=== PATIENT | female | born 1985 | race Caucasian/White ===

== ENCOUNTER 2019-01-24 18:20 | Inpatient (IN) ==
--- NOTE | 2019-01-24 19:09 | PROVIDER DOCUMENTATION ---
HPI-Screening - General Chief Complaint: General Adult Stated Complaint: POSS LOW BLOOD COUNT Time Seen by Provider: 01/24/19 18:59 Source: patient Allergies/Adverse Reactions: Allergies Allergy/AdvReac Type Severity Reaction Status Date / Time garlic Allergy Intermediate THROAT Verified 01/14/19 02:33 ITCHING Home Medications: Home Medication List Medication Instructions Recorded Confirmed Last Taken Type Albuterol Sulfate [Albuterol 6.7 gm INHALATION TID PRN #1 01/14/19 Unknown Rx Sulfate Hfa] hfa.aer.ad Benzonatate [Tessalon Perle] 100 mg PO TID PRN #20 cap 01/14/19 Unknown Rx Iron 65 mg PO QAM 01/14/19 01/14/19 01/13/19 History Patient arrived via EMS?: No HPI: Patient is a 33yo F who presents with complaints of "possible low blood count." Reports long hx of anemia requiring transfusions. States she saw her PCP this afternoon who referred her to the ED. Patient reports she feels weak, SOB, has CP, and is experiencing heart palpitations. Reports she has been on her menstrual cycle for 2 months. Upon examination, patient appears pale and is tachycardic. Physical Exam-Screening - PHYSICAL EXAM-ADULT Initial Vital Signs Reviewed: Yes - CONSTITUTIONAL General Appearance: alert, no apparent distress, other (pale). negative: lethargic, slow to respond, obtunded - EYES Eyes: PERRL/EOMI - HEAD, EARS, NOSE, MOUTH & THROAT HENMT: normocephalic/atraumatic, moist mucous membranes. negative: angioedema - NECK Neck: full range of motion, supple, normal inspection - RESPIRATORY Respiratory: chest non-tender, lungs clear, normal breath sounds, no pleuratic chest pain, no respiratory distress, no accessory muscle use. negative: crackles, rales, rhonchi, stridor, wheezing, retractions, splinting - CARDIOVASCULAR Cardiovascular: no gallop, tachycardia (127) - MUSCULOSKELETAL Back Exam: normal inspection Extremity: normal range of motion, non-tender - SKIN Integumentary: warm/dry, pallor. negative: cyanosis, mottled - NEUROLOGIC Neurologic: grossly normal. negative: aphasia, EOM palsy - PSYCHIATRIC Psych/Mental Status: normal mood/affect, normal thought content, normal thought process, oriented x 3 Screening Depart - Departure ED Screening Disposition: Continued in ED for Treatment Referrals and Follow-Ups: Kaity Thomas CRNP [Primary Care Provider] - Attestation - Physician/ NIDHI Attestation Patient care was provided by Advanced Practice Provider:: Yes Advanced Practice Provider:: Karmen Hallman Advanced Practice Provider documentation review:: The Mid-level provider documentation, treatment plan and medical decision making was reviewed by the physician who agrees with all treatment and medical decision making by the MLP. The physician spent face to face time with patient:: No Advanced Practice Provider documentation review:: Supervising physician onsite and consulted in the evaluation and care of this patient. The physician did not have a face to face encounter with the patient.
[2019-01-24 19:34] LABS: BASO# 0.02 X1000 (0.0-0.2); BASO% 0.3 % (0.0-0.8); EOS# 0.06 X1000 (0.0-0.7); HEMATOCRIT 24.1 % (37.0-47.0); HEMOGLOBIN 6.7 g/dL (12.0-16.0); IMM GRAN# 0.04 X1000 (0.0-0.04); IMM GRAN% 0.6 % (0.0-0.5); LYMPH% 31.8 % (20.5-51.1); MCH 22.7 PG (27-31); MCHC 27.8 g/dL (33-37); MCV 81.7 FL (81-99); MONO# 0.32 X1000 (0.11-0.59); MONO% 5.1 % (1.7-9.3); MPV 10.2 FL (7.4-10.4); NEUT# 3.84 X1000 (1.4-6.5); NEUT% 61.2 % (42.2-75.2); PLT 169 X1000 (130-400); RBC 2.95 XMIL (4.2-5.4); RDW 19.6 % (11.5-14.5); WBC 6.28 X1000 (4.8-10.8)
[2019-01-24 19:39] LABS: INR 0.98; PROTIME 13.1 Seconds (11.0-16.0); PTT 24.5 Seconds (22.3-41.8)
[2019-01-24] MEDS ORDERED: NS 500 ML IV ONE (19:54)
--- NOTE | 2019-01-24 19:58 | PROVIDER DOCUMENTATION ---
HPI-General Adult - General Chief Complaint: General Adult Stated Complaint: POSS LOW BLOOD COUNT Time Seen by Provider: 01/24/19 18:59 Source: patient Allergies/Adverse Reactions: Patient Allergies Allergy/AdvReac Type Severity Reaction Status Date / Time garlic Allergy Intermediate THROAT Verified 01/24/19 23:22 ITCHING Home Medications: Home Medication List Medication Instructions Recorded Confirmed Last Taken Type Norgestimate/Ethinyl Estradiol 1 ea PO QAM 01/24/19 01/24/19 01/24/19 09:00 History [Sprintec 28's] - History of Present Illness -Gen Adult Nature of Presenting Problems: Patient is a 33yo F who presents with complaints of "possible low blood count." Reports long hx of anemia requiring transfusions. States she saw her PCP this afternoon who referred her to the ED. Patient reports she feels weak/dizzy, SOB, has R sided CP, and is experiencing heart palpitations. Reports she has been on her menstrual cycle for 2 months, which is not uncommon for her. States she is saturating approximately 8 pads a day. Reports her OB[facility]CHIEF DISPATCHER SERVICE started her on Sprintec OCP last month in an attempt to control the bleeding. States also reports she has a machine lacer appointment next month. Upon examination, patient appears pale and is tachycardic. Location of Pain/Injury: reports: generalized Pain Radiation: reports: no radiation Quality of Pain: reports: aching Severity: reports: moderate Modifying Factors: improves with: nothing Associated Symptoms: reports: chest pain (R sided), dizziness, fatigue, shor tness of breath, weakness. denies: back/neck pain, nausea, vomiting Similar Symptoms Previously?: Yes Recently seen or treated by another doctor?: No Review of Systems - Adult - REVIEW OF SYSTEMS - ADULT Constitutional: reports: no symptoms reported. denies: chills, fever Eyes: reports: no symptoms reported Ears, Nose, Mouth & Throat: reports: no symptoms reported Cardiovascular: reports: see HPI, chest pain (R), palpitations Respiratory: reports: see HPI, shortness of breath. denies: cough, wheezing Gastrointestinal: reports: no symptoms reported. denies: abdominal pain, vomiting Genitourinary: reports: see HPI, discharge (heavy vaginal bleeding) Musculoskeletal: reports: see HPI, muscle weakness Integumentary: reports: see HPI, other (pallor) Neurological: reports: see HPI, dizziness/vertigo Psychiatric: reports: no symptoms reported Endocrine: reports: no symptoms reported Hematologic/Lymphatic: reports: see HPI, low blood count Allergic/Immunologic: reports: no symptoms reported Past History - Adult - PAST MEDICAL HISTORY-ADULT Review of Records: reports: Old Records Reviewed, Nursing Assessment Review, Medications Reviewed, Social history reviewed & non-contributory. Major Childhood Illnesses: reports: denies history Cardiovascular: reports: HTN Respiratory: reports: asthma Gastrointestinal: reports: denies history Obstetrical/Gynecological: reports: ovarian cysts, other (ammenorrhea) Genitourinary: reports: denies history Musculoskeletal: reports: chronic pain (chest wall pain) Neurological: reports: headaches/migraines Psychiatric: reports: anxiety Endocrine/Immune: reports: anemia Other Conditions: reports: denies history - PRIOR SURGERIES/PROCEDURES Surgical/Procedure History: reports: none - IMMUNIZATION STATUS Childhood Immunizations: See Nurse Assessment Flu Vaccine: See Nurse Assessment - FAMILY HISTORY Family History: diabetes (mother), CAD over 55 yo (grandfather), CVA/TIA (aunt and uncle had strokes in their 30s) - SOCIAL HISTORY Smoking: non-smoker Physical Exam-General - PHYSICAL EXAM-ADULT Initial Vital Signs Reviewed: Yes - CONSTITUTIONAL General Appearance: alert, mild distress. negative: lethargic, slow to respond, obtunded - EYES Eyes: PERRL/EOMI. negative: EOM palsy - HEAD, EARS, NOSE, MOUTH & THROAT HENMT: normocephalic/atraumatic, moist mucous membranes. negative: angioedema - NECK Neck: full range of motion, supple, normal inspection - RESPIRATORY Respiratory: chest non-tender, lungs clear, normal breath sounds, no pleuratic chest pain, no respiratory distress, no accessory muscle use. negative: crackles, rales, rhonchi, stridor, wheezing - CARDIOVASCULAR Cardiovascular: no gallop, tachycardia (127) - GASTROINTESTINAL (ABDOMEN) Abdominal Exam: normal bowel sounds, non tender, soft - GENITOURINARY Female Genitalia/Pelvic Exam: external exam normal, no cerv. motion tender, blood - MUSCULOSKELETAL Back Exam: normal inspection, no CVA tenderness Extremity: normal range of motion, non-tender, normal gait, normal inspection, pelvis stable - SKIN Integumentary: warm/dry, pallor. negative: cyanosis, jaundice, mottled - NEUROLOGIC Neurologic: grossly normal. negative: abnormal gait, aphasia, EOM palsy - PSYCHIATRIC Psych/Mental Status: normal mood/affect, normal thought content, normal thought process, oriented x 3 Progress - PLAN OF CARE/RESULTS Progress/Plan/Lab Results: Vital Signs - 8 hr 01/24/19 19:02 Temperature 99.2 F Pulse Rate 127 H Respiratory Rate 18 Blood Pressure 130/79 O2 Sat by Pulse Oximetry 100 Laboratory Results - last 24 hr 01/24/19 01/24/19 19:13 19:13 WBC 6.28 RBC 2.95 L Hgb 6.7 L Hct 24.1 L MCV 81.7 MCH 22.7 L MCHC 27.8 L RDW Std Deviation 19.6 H Plt Count 169 MPV 10.2 Immature Gran % (Auto) 0.6 H Neut % (Auto) 61.2 Lymph % (Auto) 31.8 [place] % (Auto) 5.1 Eos % (Auto) 1.0 Baso % (Auto) 0.3 Immature Gran # (Auto) 0.04 Neut # (Auto) 3.84 Lymph # (Auto) 2.00 [place] # (Auto) 0.32 Eos # (Auto) 0.06 Baso # (Auto) 0.02 PT 13.1 INR 0.98 PTT (Actin FS) 24.5 Orders Category Date Time Status ED: Urine Bedside ORDERED Care 01/24/19 19:03 Active Nursing- Obtain EKG ONCE Care 01/24/19 19:04 Active Saline Loc NOW Care 01/24/19 19:03 Active Transfuse .Give-Transfuse Care 01/24/19 19:54 Active CHEST-2 VIEWS [RAD] Stat Exams 01/24/19 19:07 Ordered CBC WITH ELECTRONIC DIFF [HEME] Stat Lab 01/24/19 19:13 Completed CK PROFILE [SP CHEM] Stat Lab 01/24/19 19:13 Received COMPREHENSIVE METABOLIC PANEL [CHEM] Stat Lab 01/24/19 19:13 Received LRPC (RED CELLS) [BBK] Stat Lab 01/24/19 19:54 Uncollected PROTIME WITH INR [COAG] Stat Lab 01/24/19 19:13 Completed PTT [COAG] Stat Lab 01/24/19 19:13 Completed TROPONIN T Stat Lab 01/24/19 19:13 Received TYPE & SCREEN [BBK] Stat Lab 01/24/19 19:13 Received URINALYSIS W/POSS RFLX CULT [URINALYSIS] Stat Lab 01/24/19 19:03 Uncollected 0.9% Sodium Chloride Inj [Ns] 500 ml Med 01/24/19 19:54 Discontinued IV As Directed mls/hr EKG [EKG] Stat Ther 01/24/19 19:03 Ordered Lab results, imaging results, and need for admission/blood products discussed with patient who agrees with and verbalizes understanding. Result Diagrams: 01/24/19 19:13 01/24/19 19:13 - CONSULTS/PCP/HOSPITALIST Notification #1 *Consult/PCP/Hospitalist*: Dr. Gonsalves, Hospitalist Time Discussed: 20:15 Reason/Comments: Symptomatic anemia; abnormal uterine bleeding Consult Disposition: Admit #2 Consult: [facility] Time Discussed: 20:52 Reason/Comments: Abnormal uterine bleeding; anemia Consult Disposition: Will see in ED, other (Consult while admitted) Departure - Departure Date of Disposition Decision: 01/24/19 Time of Disposition Decision: 21:15 DIAGNOSIS: Symptomatic anemia, Abnormal uterine bleeding, Palpitations Chest pain Qualifiers: Chest pain type: unspecified Qualified Code(s): R07.9 - Chest pain, unspecified Disposition: ADMITTED INPATIENT 09 Certified Medical Emergency: Emergent Condition: Stable - Critical Care Note This patient required my direct & personal management of CC.: Yes Total Time (mins): 40 Critical Care Statement: This patient required my direct personal management to treat or rule out processes, the absence of which, could potentiallly result in sudden, clinically significant life or limb threatening deterioration. Attestation - Physician/ NIDHI Attestation Patient care was provided by Advanced Practice Provider:: Yes Advanced Practice Provider:: Karmen Hallman Advanced Practice Provider documentation review:: The Mid-level provider documentation, treatment plan and medical decision making was reviewed by the physician who agrees with all treatment and medical decision making by the MLP. The physician spent face to face time with patient:: No Advanced Practice Provider documentation review:: Supervising physician onsite and consulted in the evaluation and care of this patient. The physician did not have a face to face encounter with the patient.
[2019-01-24 20:02] LABS: AGAP 15; ALB/GLOB RATIO 1.9; ALBUMIN 4.1 g/dL (3.5-5.0); ALKALINE PHOSPHATASE 51 U/L (32-104); BUN 12 mg/dL (8-22); CALCIUM 9.3 mg/dL (8.8-10.2); CHLORIDE 102 mmol/L (98-107); CK PROFILE 164 U/L (24-173); COSMO 283; ESTIMATED GFR > 60; GLUCOSE 194 mg/dL (70-104); GOT 17 U/L (10-30); GPT 10 U/L (10-36); POTASSIUM 3.6 mmol/L (3.5-5.1); SODIUM 139 mmol/L (136-145); TCO2 22 mmol/L (25-35); TOTAL BILIRUBIN 0.37 mg/dL (0.20-1.00); TOTAL PROTEIN 6.3 g/dL (6.3-8.3)
--- NOTE | 2019-01-24 21:35 | Diag Imaging Result Doc PS360 ---
EXAM: CHEST-2 VIEWS 01/24/2019 HISTORY: CP; SOB TECHNIQUE: PA and lateral chest COMMENT: There is no evidence of acute cardiac or pulmonary disease. There is a prominent epicardial fat pad over the left heart border. There has been no significant change since 01/14/2019. IMPRESSION: Stable chest. Electronically signed by Brad Combs 01/24/2019 9:33 PM
[2019-01-24 22:16] LABS: URINE SOURCE CLEAN CATCH
--- NOTE | 2019-01-24 22:33 | ED EKG INTERP ---
This chart was entered by Naomi Sinclair Scribe, acting as scribe for Sedrick Escobar MD. EKG Interpretation - EKG Time of EKG reading by physician:: 19:13 EKG Read and Signed by:: Sedrick Escobar EKG Interpretation (*Must complete 3 of following elements*): Normal Rate: 110 Rhythm: sinus tach [place]: normal QRS: normal IN Interval: normal ST Wave: normal Attestation - Physician/ NIDHI Attestation Patient care was provided by Advanced Practice Provider:: Yes Advanced Practice Provider:: Karmen Hallman Advanced Practice Provider documentation review:: The Mid-level provider documentation, treatment plan and medical decision making was reviewed by the physician who agrees with all treatment and medical decision making by the MLP. The physician spent face to face time with patient:: No Advanced Practice Provider documentation review:: Supervising physician onsite and consulted in the evaluation and care of this patient. The physician did not have a face to face encounter with the patient. This chart was documented by the indicated scribe, (Naomi Sinclair Scribe) and accurately reflects the services I performed and decisions made by me, Sedrick Escobar MD, as attested by the provider's signature.
[2019-01-24] MEDS ORDERED: TYLENOL PO ONE (23:11)
[2019-01-24 23:18] LABS: UR EPITHELIAL CELLS <10 /HPF (<10); URINE BACTERIA NEGATIVE /HPF; URINE RBC TNTC /HPF (<10); URINE WBC <10 /HPF (<10)
[2019-01-24] MEDS ORDERED: TYLENOL ONE (23:18)
[2019-01-24 23:27] LABS: BILIRUBIN URINE NEGATIVE (NEGATIVE); BLOOD URINE LARGE (NEGATIVE); COLOR YELLOW; GLUCOSE URINE 100 mg/dL (NEGATIVE); KETONE URINE NEGATIVE (NEGATIVE); LEUKOCYTES URINE NEGATIVE (NEGATIVE); NITRITE URINE NEGATIVE (NEGATIVE); PH URINE 5.5; PROTEIN URINE TRACE mg/dL (NEGATIVE); SP GRAVITY URINE 1.023; TURBIDITY URINE HAZY (CLEAR); UROBILINOGEN URINE NORMAL (NORMAL)
--- NOTE | 2019-01-25 | EKG Report ---
Test Performed on : 01/24/2019 7:13:20 PM Test Reason : DIZZY Blood Pressure : / mmHG Vent. Rate : 110 BPM Atrial Rate : 110 BPM P-R Int : 142 ms QRS Dur : 086 ms QT Int : 336 ms P-R-T Axes : 030 006 020 degrees QTc Int : 454 ms Sinus tachycardia. Otherwise normal ECG When compared with ECG of 16-JAN-2019 17:05, (Unconfirmed) premature supraventricular complexes. are no longer present Unconfirmed Result
--- NOTE | 2019-01-25 00:24 | HISTORY AND PHYSICAL ---
PRIMARY CARE PROVIDER: Kaity Thomas. CHIEF COMPLAINT: Heavy uterine bleeding. HISTORY OF PRESENTING ILLNESS: A 33-year-old female with a history of asthma had presented to the emergency department with complaint of 2 months of having irregular, heavy uterine bleeding. The patient states that she was feeling dizzy and lightheaded and subsequently she had come to the emergency department. In the ED, she was evaluated. She was found to be anemic and due to her presenting symptoms it was thought that we will place her for observation for further evaluation and management. At time of my examination, patient denied any headache, fever, chills, chest pain, shortness of breath or any weight changes, but complained of heavy vaginal bleeding. PAST MEDICAL HISTORY: Includes asthma. PAST SURGICAL HISTORY: None. ALLERGIES: No known drug allergies. CURRENT MEDICATIONS: She does not recall. Nursing staff will reconcile. SOCIAL HISTORY: No history of smoking, alcohol or illicit drug use. FAMILY HISTORY: No history of coronary artery disease. REVIEW OF SYSTEMS: Fourteen point review of systems as listed in HPI. Other systems negative. PHYSICAL EXAMINATION: GENERAL: Cooperative, friendly female. She is resting more comfortably now. VITAL SIGNS: Temperature 99.2 degrees, pulse 127, respiration 18, blood pressure 130/79. HEENT: Atraumatic, normocephalic. Extraocular movements intact. PERRLA. NECK: No masses. CHEST: Clear to auscultation. CARDIOVASCULAR: Regular rate and rhythm. S1, S2. ABDOMEN: Soft, positive bowel sounds. EXTREMITIES: No edema. NEUROLOGIC: She is awake, alert, oriented x3. GENITOURINARY: No bladder distention. SKIN: Warm. LABORATORIES AND STUDIES: WBC 6.28, hemoglobin 6.7, hematocrit 24.1, platelets 169,000. Sodium 139, potassium 3.6, chloride 102, CO2 is 22, BUN is 12, creatinine is 1.0, glucose is 194. ASSESSMENT: A 33-year-old female with a history of asthma had presented to the emergency department with 2-month history of having heavy vaginal bleeding. She was recently complaining of having dizziness and was lightheaded. She was evaluated in the emergency department. She was found to be anemic and due to her presenting symptoms she will require admission for further management. 1. Abdominal uterine bleeding. 2. Symptomatic anemia. 3. Asthma. PLAN: 1. We will admit patient to medical floor. 2. We will consult Gynecology. 3. The patient was started on blood transfusion in the ED. 4. We will continue with Kari owusu. 5. We will continue to follow, and reassess and make further recommendation based on patient's clinical course. cc: Gabriel Gonsalves MD
[2019-01-25] MEDS ORDERED: NS 1,000 ML IV SCH (00:25)
[2019-01-25] MEDS ORDERED: ZOFRAN IV PRN (00:25)
--- NOTE | 2019-01-25 06:22 | CONSULTATION ---
DATE OF CONSULTATION: 01/24/2019 CONSULTING SERVICE: TRAVELING SECRETARY. ADMITTING PHYSICIAN: Dr. Gonsalves, Hospitalist. CHIEF COMPLAINT: 1. Heavy menstrual bleeding. 2. Anemia. HISTORY OF PRESENT ILLNESS: The patient is a 33-year-old G1, P1-0-1-1, who presents to the emergency room with a complaint of heavy menstrual bleeding and feeling weak and dizzy. She states she has had heavy prolonged bleeding for the last 2 to 3 months. She passes blood clots daily and she states she uses approximately 8 pads per day. Hemoglobin on presentation was 6.7 and she is receiving a blood transfusion. She states that she has been to the ER multiple times this year with this complaint and has received approximately 8 blood transfusions this year. She was recently started on Sprintec 2 weeks ago but states it has not improved the bleeding. She has been followed by Dr. Bryson and Dr. Velazquez has in the past and has had workups completed through their office. She states her last Pap smear was in May 2018 and was normal. She has tried multiple regimens to help with the bleeding. She states she has tried Provera for 10 days of her cycle with no relief. She states prior to the delivery of her 1st child in 2009, her periods were regular, but after delivery she had amenorrhea for approximately 2 years. After that 2 year period, she has had irregular menses and periods of heavy prolonged menses. She denies any abnormal discharge. She states that she has a history of nosebleeds as a child, but has never been diagnosed with a bleeding disorder. She states that she has been trying to conceive for the last 7 years but has been unsuccessful. She has been referred to fertility doctors in the past but has not been able to go to those appointments. REVIEW OF SYSTEMS: Dizziness, lightheadedness, weakness, shortness of breath with exertion, chest pain, heavy, prolonged menses. OBSTETRIC HISTORY: G1, spontaneous vaginal delivery at 40 weeks, female, 8 pounds 13 ounces, denies complications (2009). G2, spontaneous in the 1st trimester with suction dilation and curettage (2010). PAST MEDICAL HISTORY: Asthma, anemia, obesity. MEDICATIONS: Sprintec 1 tab p.o. daily, iron 65 mg p.o. daily, albuterol inhaler p.r.n. ALLERGIES: No known drug allergies. SURGICAL HISTORY: Suction dilatation and curettage in 2010 secondary to spontaneous . SOCIAL HISTORY: She denies tobacco, alcohol, or drug use. FAMILY HISTORY: Mother of an MD 2 years ago. Father with hypertension. Sister with heavy menstrual bleeding. VITAL SIGNS: Temperature 99.2 degrees, blood pressure 130/79, heart rate 127 on arrival, decreased to 101 after IV fluids. Oxygen saturation 100% on room air. Respiratory rate 18. LABORATORY DATA: White blood cell count 6.2, hemoglobin 6.7, hematocrit 24.5, platelets 169,000. PT 13.1, INR 0.98, PTT 24.5. Sodium 139, potassium 3.6, chloride 102, carbon dioxide 22, BUN 12, creatinine 1.0, blood sugar 194. AST 17, ALT 10. Blood type A positive with negative antibody screen. Troponin less than 0.010. IMAGING: None. PHYSICAL EXAMINATION: General: Alert, pale, no acute distress. Cardiovascular: Tachycardic, regular rhythm. Lungs: Clear to auscultation bilaterally. No respiratory distress. Abdomen: Soft, obese, nontender. Pelvic exam: External female genitalia normal, cervix without lesion. No active bleeding coming from cervix but approximately 10 mL of dark red blood in the vaginal vault. Bimanual exam: Uterus enlarged, nontender, mobile, small nabothian cyst palpated on cervix. No adnexal masses or tenderness. Exam limited by body habitus. Extremities: No clubbing, cyanosis, or edema. Nontender. ELECTROCARDIOGRAM: Sinus tachycardia. ASSESSMENT: 1. A 33-year-old G1, P1-0 -1-1 with heavy prolonged menstrual bleeding. 2. Anemia, obesity, with history of asthma. PLAN: 1. Blood transfusion ordered, mild tachycardia with no active bleeding coming from cervix. 2. We will order a transvaginal ultrasound. 3. We will order a TSH, A1c, gonorrhea, chlamydia, and urine test to rule out . 4. We will start Tri-Sprintec 1 tab p.o. t.i.d. for 7 days to help stop active bleeding. Discussed plan with patient and she agrees to proceed. After 7 day course, may continue daily Sprintec. 5. Recommend further workup outpatient if bleeding resolves while inpatient. [facility]
[2019-01-25] MEDS ORDERED: SPRINTEC PO SCH (09:00)
--- NOTE | 2019-01-25 09:12 | Diag Imaging Result Doc PS360 ---
EXAM: US TRANSVAGINAL NON-OB 01/24/2019 HISTORY: Abnormal uterine bleeding; anemia TECHNIQUE: Endovaginal scan COMMENT: There are numerous nabothian cysts. The endometrial stripe is 2.1 cm in thickness in the fundus. There is no evidence of free fluid. The uterus measures 10.5 x 8.1 x 5.3 cm. There is a somewhat heterogeneous myometrial mass measuring 5.5 x 1.6 x 3.4 cm in the fundus which is likely a leiomyoma. The ovaries are not enlarged. IMPRESSION: Thickened endometrium and uterine fibroid. Electronically signed by Brad Combs 01/25/2019 9:10 AM
--- NOTE | 2019-01-25 09:14 | EKG Report ---
Test Performed on : 01/25/2019 09:03:47 AM Test Reason : chest pain Blood Pressure : / mmHG Vent. Rate : 087 BPM Atrial Rate : 087 BPM P-R Int : 160 ms QRS Dur : 088 ms QT Int : 370 ms P-R-T Axes : 026 010 016 degrees QTc Int : 445 ms Normal sinus rhythm. Normal ECG When compared with ECG of 24-JAN-2019 19:13, (Unconfirmed) No significant change was found Confirmed by Mariana WINTERS, [place] ([id number]) on 01/26/2019 10:38:53 AM
--- NOTE | 2019-01-25 09:56 | Diag Imaging Result Doc PS360 ---
EXAM: CHEST-PORTABLE - 01/25/2019 HISTORY: SOB TECHNIQUE: Portable chest COMPARISON: 01/24/2019 FINDINGS: Heart size is within normal limits. There is mild linear atelectasis or scarring at the left base. Lungs otherwise appear clear. There is no pleural effusion or pneumothorax identified. IMPRESSION: Mild left basilar linear atelectasis or scarring. No other evidence of acute disease. Electronically signed by Patrick Menjivar 01/25/2019 9:54 AM
[2019-01-25] MEDS: SPRINTEC PO SCH ×2 (14:07→18:16)
--- NOTE | 2019-01-25 14:15 | PROGRESS NOTE ---
DATE: 01/25/2019 SUBJECTIVE: This patient is feeling a bit better compared with yesterday. She is complaining of pressure-like chest pain and this has been going on for a few weeks now, this patient came in with anemia, severe, she has been having heavy menses, her troponins have been negative x2, EKGs is negative as well. As per the patient she always has chest pain when the blood transfusion is going too fast so I asked the nurse to transfuse this lady with her 2nd unit slowly to see if she tolerates that. OBJECTIVE: Vital Signs: Temperature 98.3 degrees, pulse 92, respiratory rate 18, blood pressure 117/75, oxygen saturation 95% on room air. HEENT: Head normocephalic, no trauma. PERRLA. Neck: Supple. No JVD. No masses. Central trachea. Chest: Clear to auscultation. No wheezing. No rales. Abdomen: Soft, nontender, nondistended. No hepatosplenomegaly. Extremities: No edema, no clubbing, no cyanosis. Neurological: The patient is alert and oriented x3. No focal deficits. LABORATORY: Pending lab work today, I requested a new hemoglobin and hematocrit in the afternoon after transfusion. Troponins negative x2. ASSESSMENT AND PLAN: 1. Symptomatic anemia, likely due to uterine bleeding, as per the patient, this is not a new issue. She has been having heavy menses and bleeding before, she has been transfused multiple times in the past. 2. Chest pain, likely due to her anemia as well, as per the patient every time she has a blood transfusion that is going too fast, she gets symptomatic with chest pain, I checked a new x- ray and is not showing any changes. 3. History of asthma, aware. 4. DIGITAL MARKETING PROGRAM MANAGER on board. They asked for a pelvic and transvaginal ultrasound that showed thickened endometrium and uterine fibroid, I will recheck the hemoglobin and hematocrit this afternoon and also tomorrow morning. Hopefully this patient can be discharged soon. cc: Chris Treviño MD
[2019-01-25] MEDS ORDERED: NS 500 ML ONE (14:28)
[2019-01-26 00:09] LABS: BASO# 0.03 X1000 (0.0-0.2); BASO% 0.4 % (0.0-0.8); EOS# 0.06 X1000 (0.0-0.7); EOS% 0.7 % (0.0-10.0); HEMATOCRIT 26.1 % (37.0-47.0); HEMOGLOBIN 7.3 g/dL (12.0-16.0); IMM GRAN# 0.08 X1000 (0.0-0.04); LYMPH# 1.53 X1000 (1.2-3.4); LYMPH% 18.8 % (20.5-51.1); MCH 23.4 PG (27-31); MCV 83.7 FL (81-99); MONO# 0.51 X1000 (0.11-0.59); MONO% 6.3 % (1.7-9.3); MPV 9.7 FL (7.4-10.4); NEUT# 5.93 X1000 (1.4-6.5); NEUT% 72.8 % (42.2-75.2); PLT 138 X1000 (130-400); RBC 3.12 XMIL (4.2-5.4); RDW 20.5 % (11.5-14.5); WBC 8.14 X1000 (4.8-10.8)
[2019-01-26] MEDS: TYLENOL PO PRN ×2 (00:21→15:33)
[2019-01-26 00:40] LABS: CREATININE 1.1 mg/dL (0.5-0.9); POTASSIUM 3.8 mmol/L (3.5-5.1)
[2019-01-26 08:03] LABS: HEMATOCRIT 24.8 % (37.0-47.0); MCH 24.1 PG (27-31); MCHC 28.2 g/dL (33-37); MCV 85.2 FL (81-99); MPV 10.3 FL (7.4-10.4); RBC 2.91 XMIL (4.2-5.4); RDW 21.3 % (11.5-14.5); WBC 7.28 X1000 (4.8-10.8)
[2019-01-26 08:08] LABS: AGAP 12; BUN 14 mg/dL (8-22); CALCIUM 8.5 mg/dL (8.8-10.2); CHLORIDE 105 mmol/L (98-107); COSMO 283; ESTIMATED GFR > 60; GLUCOSE 154 mg/dL (70-104); POTASSIUM 3.9 mmol/L (3.5-5.1); SODIUM 140 mmol/L (136-145); TCO2 23 mmol/L (25-35)
[2019-01-26] MEDS: SPRINTEC PO SCH ×3 (09:47→17:14)
[2019-01-26 15:14] LABS: IRON SATURATION 25 %; TIBC 358 ug/dL; TOTAL IRON 88 ug/dL (49-151); UNBOUND IRON 270 ug/dL (112-346)
--- NOTE | 2019-01-26 17:15 | PROGRESS NOTE ---
DATE: 01/26/2019 SUBJECTIVE: This morning, Ms. Garay refers to be doing well. Denies any new complaints. Still has some vaginal bleed, but according to her, it seems to be improving. OBJECTIVE: Vital signs: Blood pressure is 141/89, pulse of 91, respirations 19, temperature 98.5 degrees. General: Ms. Garay is a 33-year-old female. She is in bed. No distress. Mucosa is pink and moist. Anicteric. Acyanotic. Neck: Supple. Chest: Good air entry bilateral. There is no crepitation. No rhonchi. Cardiovascular: Regular rate and rhythm. Gastrointestinal: Abdomen is soft, nontender. Bowel sounds present. Extremities: No pedal edema. Central Nervous System: Patient is awake, alert, and oriented. LABORATORY DATA: Hemoglobin is 7.0, platelet count and WBC is normal. Chemistry is also reviewed unremarkable. Pelvic transvaginal ultrasound shows thickened endometrium and uterine fibroid. ASSESSMENT: 1. Symptomatic anemia improved with 2 packed red blood cell transfusion. 2. Anemia of genitourinary bleed from menometrorrhagia. 3. Uterine leiomyoma. 4. History of asthma. 5. Suspected underlying iron deficiency from chronic blood loss from genitourinary tract. We will get the iron levels and infuse Venofer accordingly. 6. Obesity with BMI of 43.2 noted. cc: Andres Austin MD
[2019-01-26 17:59] LABS: HEMATOCRIT 25.2 % (37.0-47.0); HEMOGLOBIN 7.1 g/dL (12.0-16.0)
[2019-01-27 07:30] LABS: HEMATOCRIT 26.2 % (37.0-47.0); HEMOGLOBIN 7.4 g/dL (12.0-16.0); MCH 24.5 PG (27-31); MCHC 28.2 g/dL (33-37); MCV 86.8 FL (81-99); MPV 9.6 FL (7.4-10.4); RBC 3.02 XMIL (4.2-5.4); RDW 23.1 % (11.5-14.5); WBC 7.43 X1000 (4.8-10.8)
[2019-01-27 07:57] VITALS: BP 127/74
[2019-01-27] MEDS: SPRINTEC PO SCH (08:25)
--- NOTE | 2019-01-28 08:36 | DISCHARGE SUMMARY ---
ADMISSION DATE: 01/24/2019 DISCHARGE DATE: 01/27/2019 DISPOSITION: Home. FOLLOWUP: 1. Dr. Linda Bryson. 2. Ms. Kaity Thomas. CONSULTATIONS DURING THIS ADMISSION: Hematology/Oncology was consulted. The patient was seen by Dr. Jacque Ayon. INVASIVE PROCEDURES DONE DURING THIS ADMISSION: None. IMAGING STUDIES OF SIGNIFICANCE: 1. Chest x-ray shows stable. 2. Pelvic ultrasound showed thickened endometrium and uterine fibroid. ADMISSION DIAGNOSES: 1. Abdominal uterine bleeding. 2. Symptomatic anemia. 3. History of asthma. DISCHARGE DIAGNOSES: 1. Symptomatic anemia, improved with 2 packed red blood cells transfusion. 2. Anemia secondary to menometrorrhagia. 3. Uterine leiomyoma. 4. 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 5. Obesity with body mass index of 43.2. 6. Remote history of asthma. DISCHARGE MEDICATIONS: 1. Sprintec 28 one tablet p.o. daily. 2. Metamucil 1 tablet b.i.d. 3. B complex with vitamin C one tablet daily. 4. Iron sulfate 325 mg b.i.d. 5. Bridgette-Colace 1 tablet b.i.d. PRESENTING COMPLAINT: Heavy uterine bleed. HISTORY OF PRESENTING COMPLAINT: Ms. Garay is a 33-year-old female who presented to the emergency department because of dizziness, lightheadedness. She has had multiple episodes of profuse vaginal bleed due to irregular menses. She normally follows up with Dr. Bryson, her patient transport orderly. Upon presentation, she was evaluated and was found to have a hemoglobin of 6.7. She was admitted to the medical floor for management. HOSPITAL COURSE: Ms. Garay was admitted to the medical floor. She was grouped and crossmatched and transfused 2 PRBCs, and her hemoglobin improved from 6.7 to 7.4. During the hospital course, she was also evaluated by Dr. Jacque Ayon, the patient transport orderly, and she was started on her control pills. She referred that her vaginal bleed has significantly improved. An ultrasound of the pelvis revealed uterine leiomyoma. Today, Ms. Garay refers to be doing a lot better. She is no more symptomatic. We think she is fairly stable to be discharged. Her hemoglobin is 7.4 this morning. She is going to be on iron pills, as well as vitamins, and she will follow up with Dr. Bryson for a further therapeutic approach to her uterine fibroids. All the discharge instructions have been discussed with her, and she voiced understanding. TIME SPENT: Time spent for discharge was 35 minutes. cc: MD Linda Neville MD Johnna Langford, CRNP
== END 2019-01-27 13:25 | disposition home or self-care (01) | DRG 812 ==
LOC: 3N 18:20 → ED 18:20 → SUATTDRO 21:29 → OBSVTOIN 21:29
PROVIDERS: ATTEND Internal Medicine

== ENCOUNTER 2019-04-12 14:15 | Inpatient (IN) ==
--- NOTE | 2019-04-12 14:34 | EKG Report ---
Test Performed on : 04/12/2019 2:21:58 PM Test Reason : CHEST PAIN Blood Pressure : / mmHG Vent. Rate : 102 BPM Atrial Rate : 102 BPM P-R Int : 158 ms QRS Dur : 086 ms QT Int : 354 ms P-R-T Axes : 045 000 020 degrees QTc Int : 461 ms Sinus tachycardia. Otherwise normal ECG When compared with ECG of 28-MAR-2019 11:31, (Unconfirmed) No significant change was found Unconfirmed Result
--- NOTE | 2019-04-12 14:48 | Diag Imaging Result Doc PS360 ---
EXAM: CHEST-2 VIEWS 04/12/2019 HISTORY: CHEST PAIN SOB TECHNIQUE: Two views the chest COMMENT: There is minimal atelectasis in the lingula. This was also apparently present on 03/31/2019. IMPRESSION: Lingular atelectasis. Electronically signed by Brad Combs 04/12/2019 2:46 PM
[2019-04-12 14:58] LABS: BASO# 0.03 X1000 (0.0-0.2); BASO% 0.3 % (0.0-0.8); EOS# 0.04 X1000 (0.0-0.7); EOS% 0.4 % (0.0-10.0); HEMATOCRIT 26.7 % (37.0-47.0); HEMOGLOBIN 7.4 g/dL (12.0-16.0); IMM GRAN# 0.03 X1000 (0.0-0.04); IMM GRAN% 0.3 % (0.0-0.5); LYMPH# 1.58 X1000 (1.2-3.4); LYMPH% 16.6 % (20.5-51.1); MCHC 27.7 g/dL (33-37); MCV 72.2 FL (81-99); MONO# 0.46 X1000 (0.11-0.59); MONO% 4.8 % (1.7-9.3); MPV 10.4 FL (7.4-10.4); NEUT# 7.39 X1000 (1.4-6.5); NEUT% 77.6 % (42.2-75.2); PLT 216 X1000 (130-400); RDW 18.5 % (11.5-14.5); WBC 9.53 X1000 (4.8-10.8)
[2019-04-12 15:04] LABS: INR 0.99; PROTIME 13.2 Seconds (11.0-16.0)
[2019-04-12 15:12] LABS: AGAP 10; ALB/GLOB RATIO 1.5; ALKALINE PHOSPHATASE 58 U/L (32-104); BUN 12 mg/dL (8-22); CHLORIDE 101 mmol/L (98-107); CK PROFILE 63 U/L (24-173); COSMO 277; CREATININE 0.9 mg/dL (0.5-0.9); ESTIMATED GFR > 60; GLUCOSE 159 mg/dL (70-104); GOT 13 U/L (10-30); GPT 12 U/L (10-36); POTASSIUM 3.6 mmol/L (3.5-5.1); SODIUM 137 mmol/L (136-145); TCO2 26 mmol/L (25-35); TOTAL BILIRUBIN 0.35 mg/dL (0.20-1.00); TOTAL PROTEIN 6.6 g/dL (6.3-8.3)
--- NOTE | 2019-04-12 15:59 | PROVIDER DOCUMENTATION ---
HPI-Chest Pain - General Chief Complaint: Chest Pain Stated Complaint: CHEST /BACK PAIN Time Seen by Provider: 04/12/19 15:46 Source: patient Allergies/Adverse Reactions: Patient Allergies Allergy/AdvReac Type Severity Reaction Status Date / Time garlic Allergy Intermediate THROAT Verified 04/12/19 18:28 ITCHING Home Medications: Home Medication List Medication Instructions Recorded Confirmed Last Taken Type Ferrous Sulfate 1 tab PO DAILY 02/13/19 04/12/19 04/12/19 History Norgestimate/Ethinyl Estradiol 1 tab PO DAILY 02/13/19 04/12/19 04/12/19 History [Sprintec 28's] Albuterol Sulfate [Proair Hfa] 2 puff INH Q4-6H PRN PRN 03/10/19 04/12/19 04/05/19 History Lovastatin 40 mg PO DAILY 03/10/19 04/12/19 04/12/19 History - History of Present Illness-CP Nature of Presenting Problem: 33 yr old F, presenting with complaints of chest pain, alternating sharp and pressure-like, for the past week, pt reports shortness of breath. Occurs at rest as well as with activity. Pt has had visits to the ED in the past with somewhat similar complaints. No associated nausea, or vomiting. Location: reports: central Chest Pain Radiation: reports: no radiation Severity in ED: moderate Onset/Duration: last week Timing: still present Context/Activities at Onset: reports: none Modifying Factors: improves with: nothing Associated Symptoms: reports: shortness of breath Nitro Today/Relief: no nitro taken today Prior Chest Pain/Cardiac Workup: reports: no prior chest pain, no prior cardiac workup Similar Symptoms Previously?: Yes Review of Systems - Adult - REVIEW OF SYSTEMS - ADULT Constitutional: reports: no symptoms reported Eyes: reports: no symptoms reported Ears, Nose, Mouth & Throat: reports: no symptoms reported Cardiovascular: reports: see HPI Respiratory: reports: see HPI Gastrointestinal: reports: no symptoms reported Genitourinary: reports: no symptoms reported Musculoskeletal: reports: no symptoms reported Integumentary: reports: no symptoms reported Psychiatric: reports: no symptoms reported Endocrine: reports: no symptoms reported Hematologic/Lymphatic: reports: no symptoms reported Allergic/Immunologic: reports: no symptoms reported Past History - Adult - PAST MEDICAL HISTORY-ADULT Review of Records: reports: Old Records Reviewed, Nursing Assessment Review Major Childhood Illnesses: reports: denies history Cardiovascular: reports: HTN Respiratory: reports: asthma Gastrointestinal: reports: denies history Obstetrical/Gynecological: reports: fibroids, ovarian cysts, other (menometorrhagia) Genitourinary: reports: denies history Musculoskeletal: reports: chronic pain (chest wall pain) Neurological: reports: headaches/migraines Psychiatric: reports: anxiety Endocrine/Immune: reports: anemia Other Conditions: reports: denies history - PRIOR SURGERIES/PROCEDURES Surgical/Procedure History: reports: none - IMMUNIZATION STATUS Childhood Immunizations: See Nurse Assessment Flu Vaccine: See Nurse Assessment - FAMILY HISTORY Family History: diabetes (mother), CAD over 55 yo (grandfather), CVA/TIA (aunt and uncle had strokes in their 30s) - SOCIAL HISTORY Living Situation: family Physical Exam-General - PHYSICAL EXAM-ADULT Initial Vital Signs Reviewed: Yes - CONSTITUTIONAL General Appearance: appears well, alert, no apparent distress - EYES Eyes: PERRL/EOMI - HEAD, EARS, NOSE, MOUTH & THROAT HENMT: normocephalic/atraumatic, moist mucous membranes - RESPIRATORY Respiratory: chest non-tender, lungs clear, normal breath sounds - CARDIOVASCULAR Cardiovascular: tachycardia - GASTROINTESTINAL (ABDOMEN) Abdominal Exam: normal bowel sounds, non tender, soft - MUSCULOSKELETAL Extremity: no pedal edema, no calf tenderness - SKIN Integumentary: warm/dry - PSYCHIATRIC Psych/Mental Status: normal mood/affect, oriented x 3 Progress - PLAN OF CARE/RESULTS Progress/Plan/Lab Results: Vital Signs - 8 hr 04/12/19 14:20 04/12/19 15:02 04/12/19 15:28 Temperature 98 F Pulse Rate 106 H 64 97 H Respiratory Rate 16 18 18 Blood Pressure 137/82 108/68 110/71 O2 Sat by Pulse Oximetry 100 98 98 04/12/19 16:03 04/12/19 16:30 04/12/19 17:00 Temperature Pulse Rate 97 H 91 H 97 H Respiratory Rate 17 17 17 Blood Pressure 125/78 116/74 105/74 O2 Sat by Pulse Oximetry 100 100 100 04/12/19 17:30 04/12/19 18:00 04/12/19 18:30 Temperature Pulse Rate 96 H 94 H 106 H Respiratory Rate 19 19 24 Blood Pressure 113/83 123/77 O2 Sat by Pulse Oximetry 99 100 100 04/12/19 21:23 04/12/19 21:28 04/12/19 21:33 Temperature 99 F 98.9 F 98.6 F Pulse Rate 100 H 98 H 97 H Respiratory Rate 16 18 19 Blood Pressure 137/78 126/82 121/69 O2 Sat by Pulse Oximetry 100 100 99 04/12/19 21:38 04/12/19 21:53 Temperature 98.7 F 98.6 F Pulse Rate 100 H 94 H Respiratory Rate 18 18 Blood Pressure 128/80 119/85 O2 Sat by Pulse Oximetry 100 99 Laboratory Results - last 24 hr 04/12/19 04/12/19 04/12/19 14:30 14:30 14:30 WBC RBC Hgb Hct MCV MCH MCHC RDW Std Deviation Plt Count MPV Immature Gran % (Auto) Neut % (Auto) Lymph % (Auto) [place] % (Auto) Eos % (Auto) Baso % (Auto) Immature Gran # (Auto) Neut # (Auto) Lymph # (Auto) [place] # (Auto) Eos # (Auto) Baso # (Auto) PT INR PTT (Actin FS) Sodium 137 Potassium 3.6 Chloride 101 Carbon Dioxide 26 Anion Gap 10 BUN 12 Creatinine 0.9 Estimated GFR/1.73 m2 > 60 BUN/Creatinine Ratio 13 Glucose 159 H Calculated Osmolality 277 Calcium 9.0 Total Bilirubin 0.35 AST 13 ALT 12 Alkaline Phosphatase 58 Creatine Kinase 63 Troponin T High Sens < 6 Pvm-C-Pjomsxrbuwe Pept 59 Total Protein 6.6 Albumin 4.0 Globulin 2.6 Albumin/Globulin Ratio 1.5 Blood Type Antibody Screen Antibody Identification Crossmatch 04/12/19 04/12/19 04/12/19 14:30 14:30 14:30 WBC 9.53 RBC 3.70 L Hgb 7.4 L Hct 26.7 L MCV 72.2 L MCH 20.0 L MCHC 27.7 L RDW Std Deviation 18.5 H Plt Count 216 MPV 10.4 Immature Gran % (Auto) 0.3 Neut % (Auto) 77.6 H Lymph % (Auto) 16.6 L [place] % (Auto) 4.8 Eos % (Auto) 0.4 Baso % (Auto) 0.3 Immature Gran # (Auto) 0.03 Neut # (Auto) 7.39 H Lymph # (Auto) 1.58 [place]ill # (Auto) 0.46 Eos # (Auto) 0.04 Baso # (Auto) 0.03 PT 13.2 INR 0.99 PTT (Actin FS) 26.0 Sodium Potassium Chloride Carbon Dioxide Anion Gap BUN Creatinine Estimated GFR/1.73 m2 BUN/Creatinine Ratio Glucose Calculated Osmolality Calcium Total Bilirubin AST ALT Alkaline Phosphatase Creatine Kinase Troponin T High Sens Vnu-S-Gdbwkyuarfg Pept Total Protein Albumin Globulin Albumin/Globulin Ratio Blood Type A POSITIVE Antibody Screen POSITIVE Antibody Identification Cold Antibody Crossmatch See Detail Orders Category Date Time Status If abnormal EKG, order: NOW Care 04/12/19 14:24 Active Transfuse .Give-Transfuse Care 04/12/19 16:07 Active CHEST-2 VIEWS [RAD] Stat Exams 04/12/19 14:24 Completed ANTIBODY IDENTIFICATION [BBK] Stat Lab 04/12/19 14:30 Results CBC WITH ELECTRONIC DIFF [HEME] Stat Lab 04/12/19 14:30 Completed CK PROFILE [SP CHEM] Stat Lab 04/12/19 14:30 Completed COMPREHENSIVE METABOLIC PANEL [CHEM] Stat Lab 04/12/19 14:30 Completed PRBC [LRPC (RED CELLS)] [BBK] Stat Lab 04/12/19 14:30 Results PRO B-NATRIURETIC PEPTIDE Stat Lab 04/12/19 14:30 Completed PROTIME WITH INR [COAG] Stat Lab 04/12/19 14:30 Completed PTT [COAG] Stat Lab 04/12/19 14:30 Completed TROPONIN T HIGH SENSITIVITY Stat Lab 04/12/19 14:30 Completed TYPE & SCREEN [BBK] Stat Lab 04/12/19 14:30 Results 0.9% Sodium Chloride Inj [Ns] 1,000 ml Med 04/12/19 20:06 Discontinued IV 999 mls/hr CP/Palp <45 No Known Cardiac Hx Stat Oth 04/12/19 14:23 Ordered CP/SOB/Palp >45 yrs of Age Stat Oth 04/12/19 14:25 Ordered EKG [EKG] Stat Ther 04/12/19 14:24 Draft Pt's H/H 7.4/26.7 - acute change from 2 wks prior; pt reports heavy menstrual cycles; spoke with hospitalist to consider admission for transfusion; they rec ommended transfusion in the ED; did discuss the plan with the pt, will be transfusing 1 unit, with plans to d/c home given continued stable vitals with iron, and close f/u with OB. 8:00PM - Due to delay in care - delay in type and screen being resulted, and apparent difficulties in getting appropriate blood due to the pt having atypical antibodies; I did speak with the night hospitalist, after discussing the case, she will be accepted for transfusion overnight. I felt admission was warranted given her acute drop and symptomatic presentation. Result Diagrams: 04/12/19 14:30 04/12/19 14:30 - EKG 1 Time of EKG reading by physician:: 14:38 EKG Read and Signed by:: Emmanuelle Soto Rate: 102 Rhythm: sinus tachycardia [place]: normal QRS: normal MI Interval: normal ST Wave: normal - CONSULTS/PCP/HOSPITALIST Notification #1 *Consult/PCP/Hospitalist*: Dr. Porter Time Discussed: 15:00 (Spoke with attending about possible admission given acute blood loss; given her stable vital signs, it was recommended she get transfued in the ED and have close f/u with the OB.) Consult Disposition: other #2 Consult: Dr. Quiroga Time Discussed: 20:00 (Spoke with Dr. Bowen - at this point, there ahs been a delay in care in the pt receiving her blood products due to delayed posting of the type and screen, and the pt having atypical antibodies that will require different blood products; going off of her current H/H, she does not quite meet transfusion levels (hgb 7.0); however, the pt has had an acute drop in the two weeks since she was last here, and is also symptomatic; pt has also required transfusion in the past for similar reasons; it is my thought she will need to be transfused soon; Dr. Quiroga did agree to accept the pt. ) Consult Disposition: Admit Departure - Departure Date of Disposition Decision: 04/12/19 Time of Disposition Decision: 19:17 DIAGNOSIS: Symptomatic anemia Disposition: ADMITTED INPATIENT 09 Certified Medical Emergency: Emergent Condition: Stable Referrals and Follow-Ups: None,PCP [Primary Care Provider] - - Critical Care Note This patient required my direct & personal management of CC.: No Attestation - Physician/ NIDHI Attestation Patient care was provided by Advanced Practice Provider:: No The physician spent face to face time with patient:: Yes Advanced Practice Provider documentation review:: Supervising physician onsite and consulted in the evaluation and care of this patient. The physician did have a face to face encounter with the patient.
[2019-04-12] MEDS ORDERED: NS 1,000 ML IV ONE (20:06)
[2019-04-12] MEDS ORDERED: VENTOLIN HFA INH PRN (23:26)
[2019-04-13] MEDS: NS 1,000 ML IV SCH ×2 (00:43→13:55)
[2019-04-13 07:42] LABS: HEMOGLOBIN A1C 6.1 % (4.8-6.0)
[2019-04-13 07:55] LABS: IRON SATURATION 24 %; TIBC 344 ug/dL; TOTAL IRON 82 ug/dL (49-151); UNBOUND IRON 262 ug/dL (112-346)
[2019-04-13 08:10] LABS: FERRITIN 18 ng/mL (13-150)
--- NOTE | 2019-04-13 10:30 | HISTORY AND PHYSICAL ---
CHIEF COMPLAINT: Abnormal uterine bleeding. HISTORY OF PRESENT ILLNESS: Ms. Marjan Garay is a 33-year-old female, who has a history of abnormal uterine bleeding and bronchial asthma, uterine leiomyoma. She presents to the hospital because of uterine bleeding which she indicates actually has been going on for about 2 to 3 years. She follows up with [*]who is a linemarker. She indicates that oral contraceptive pills do help to control the bleeding. The patient had also complained of chest pain as well as shortness of breath at the time of presentation. She was found to be anemic with a hematocrit of about 26.7. The patient has now been admitted to the floor for further management. PAST MEDICAL HISTORY: 1. Abnormal uterine bleeding. 2. Anemia. 3. Bronchial asthma. SOCIAL HISTORY: No history of cigarette smoking. No alcohol or drug use. ALLERGIES: No known drug allergies. PAST SURGICAL HISTORY: Unremarkable. FAMILY HISTORY: Not remarkable. MEDICATIONS: Include the following: She does take oral contraceptive pills, ProAir, ferrous sulfate, lovastatin. REVIEW OF SYSTEMS: General: No fevers. 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 Eyes: No blurred vision. ENT: No sign of hearing loss. GI: No nausea, vomiting, diarrhea, constipation. : No dysuria. Dermatology: No skin lesions. Hematology: As in history of present illness. Musculoskeletal: No joint pains. Endocrinology: No diabetes or thyroid disease. Psychiatry: No anxiety or depression. Allergy/Immunology: No symptoms suggestive of allergic rhinitis. PHYSICAL EXAMINATION: VITAL SIGNS: Temperature is 98.9 degrees, pulse 97, respirations 20, blood pressure 119/85, oxygen 100%. HEENT: Atraumatic normocephalic. She is anicteric. Extraocular movements intact. No oral lesions noted. NECK: No lymphadenopathy or thyromegaly. CARDIOVASCULAR: S1, S2. RESPIRATORY SYSTEM: Has evidence of good air entry bilaterally. ABDOMEN: Soft, nontender. No masses felt. EXTREMITIES: No evidence of edema. CENTRAL NERVOUS SYSTEM: No obvious focal deficit noted. LABORATORY DATA: WBC 9.53, hematocrit 26.7 with a platelet count of 216,000. Sodium is 137, potassium 3.6, chloride is 101, bicarb 26, BUN is 12, creatinine 0.9. Blood sugar is 159. Chest x-ray shows lingular atelectasis. EKG shows sinus tachycardia, otherwise normal ECG. ASSESSMENT AND PLAN: 1. Probable asymptomatic anemia. We will check iron studies, along with B12 and folate level along with stool for occult blood. We will type, cross,and transfuse 1 unit of packed red blood cells. 2. Abnormal uterine bleeding with history of uterine leiomyoma. The patient will need to be evaluated by her linemarker. This can be done in the outpatient. 3. Bronchial asthma. Nebulized bronchodilators as needed. 4. Elevated blood sugar level. The patient is not a known diabetic. We check hemoglobin A1c level. 5. Deep vein thrombosis prophylaxis. Sequential compression devices. 6. Gastrointestinal prophylaxis. Proton pump inhibitor. cc: Deshawn Quiroga MD
[2019-04-13] MEDS: FERROUS SULFATE PO SCH ×2 (10:43→10:49)
[2019-04-13] MEDS: MEVACOR PO SCH ×2 (10:43→10:49)
[2019-04-13] MEDS: PRILOSEC PO SCH ×2 (10:46→10:50)
--- NOTE | 2019-04-13 11:47 | PROGRESS NOTE ---
DATE: 04/13/2019 SUBJECTIVE: The patient presented to the emergency department yesterday afternoon with a chief complaint of chest pain along with shortness of breath and generalized fatigue and malaise. This prompted the ED to immediately evaluate for a cardiac etiology for the symptoms, which revealed no evidence of a cardiac etiology to her pain, which prompted further evaluation by the Hospitalist service. Today, she still reports a burning chest pain that is located in the center of her sternum. She reports that this pain started over on the left side of her chest but now has since moved to the center of her chest. She reports that with exertion this pain becomes more of a burning sensation but denies that the sensation becomes more of a pressure-type pain. Today, she further reports that she is exhibiting sensations of fatigue and malaise and also endorses a sensation of shortness of breath. She reports that these symptoms began yesterday afternoon, which prompted her to report to the ED. After initial evaluation by the ED and no acute or emergent cause was determined by the ED physician, the patient was admitted to the [facility] for further evaluation by the Hospitalist service. REVIEW OF SYSTEMS: Cardiovascular: The patient endorses a sensation of palpitations along with the sensation of presyncope. She further endorses that the pain in her chest is worsened by deep palpation of the sternum and also reports that the pain in her chest is worsened by taking a deep breath. Pulmonary: The patient endorses pleuritic chest pain, shortness of breath, but denies cough and sore throat. Constitutional: The patient is awake and oriented x3 and endorses a generalized feeling of fatigue and malaise. OBJECTIVE: Vital signs: Most recent vital signs include a temperature of 98.2 degrees Fahrenheit, a heart rate of 97 beats per minute, a respiratory rate of 20 respirations per minute, a blood pressure of 119/79, and an O2 saturation of 97%. PHYSICAL EXAMINATION: Heart: Clear to murmurs, rubs, and gallops. Pulmonary: Lungs apparently clear to auscultation in all lung arevalo. The patient appears acyanotic. Hematology/Oncology: Conjunctival pallor observed in both eyes, capillary refill within normal limits. GI:Bowel sounds present 4x, tenderness to palpation in lower left quadrant of abdomen. Other quadrants non tender PERTINENT LABORATORY STUDIES: Most recent laboratory studies include a white blood cell count of 9.53, red blood cells 3.7, hemoglobin 7.4, hematocrit 26.7, MCV 72.2, MCH 20, MCHC 27.7, RDW standard deviation 18.5, platelets 216,000. All electrolytes within normal limits including a BUN of 12 and a creatinine of 0.9. Glucose 159. Hemoglobin A1c performed today showed an A1c of 6.1. Iron studies include a serum iron of 82, a total iron-binding capacity of 344, a ferritin of 18. Serum levels of vitamin B12 were 256 and serum levels of folate were 10.2. PERTINENT IMAGING STUDIES: A chest x-ray revealed minimal atelectasis in the lingula but no other apparent acute disease processes. Furthermore, an EKG performed in the ED yesterday upon admission revealed sinus tachycardia with a potential delta wave within the QRS complex. ASSESSMENT AND PLAN: 1)Iron-deficiency anemia. The conjunctival pallor seen in both eyes along with the decreased hemoglobin and hematocrit along with a decreased ferritin seen in the iron studies strongly suggests a diagnosis of a microcytic anemia specifically an iron-deficiency anemia. We are currently treating her with ferrous sulfate 325 mg p.o. daily, this should reverse her symptoms. We will continue to regularly check her hemoglobin and hematocrit in hopes that this treatment will resolve her anemia and her symptoms. 2) Uterine fibroids. The patient endorses a history of uterine fibroids consistent with the pain in the lower left quadrant of the abdomen. Patient is on OCPs and has appointment with Dr. Boudreaux in May Thank you for allowing me to see your patient. Dictated by Sadie Solorzano Medical Student for Andres Austin MD This chart was documented by, Nicole Nunez Student and accurately reflects the services performed, treatment plan and medical decisions as attested by the providers signature Andres Austin MD. cc: Andres Austin MD [facility]ITAL[facility]
[2019-04-13 15:40] LABS: HEMATOCRIT 26.6 % (37.0-47.0); HEMOGLOBIN 7.5 g/dL (12.0-16.0)
[2019-04-13] MEDS ORDERED: NS 500 ML IV ONE (15:51)
[2019-04-14] MEDS: NS 1,000 ML IV SCH (04:35)
[2019-04-14] MEDS: PRILOSEC PO SCH (06:06)
[2019-04-14] MEDS: MEVACOR PO SCH (08:10)
[2019-04-14] MEDS: FERROUS SULFATE PO SCH (08:10)
[2019-04-14 08:14] LABS: HEMOGLOBIN A1C 5.8 % (4.8-6.0)
[2019-04-14 08:28] VITALS: BP 126/86
[2019-04-14 10:43] LABS: HEMATOCRIT 30.3 % (37.0-47.0); HEMOGLOBIN 8.7 g/dL (12.0-16.0); MCH 21.8 PG (27-31); MCHC 28.7 g/dL (33-37); MCV 75.8 FL (81-99); MPV 10.1 FL (7.4-10.4); RDW 21.1 % (11.5-14.5)
--- NOTE | 2019-04-14 21:01 | DISCHARGE SUMMARY ---
ADMISSION DATE: 04/12/2019 DISCHARGE DATE: 04/14/2019 DISCHARGE DIAGNOSES: 1. Menometrorrhagia. 2. Uterine fibroids. 3. Iron deficiency anemia. 4. Asthma. 5. Obesity. 6. Diet-controlled diabetes. HOSPITAL COURSE: Patient with a long history of dysfunctional uterine bleeding presents with dyspnea and chest pain. She is found to be significantly anemic with a hemoglobin of 7.4. She was transfused 1 unit with appropriate increase to 8.7. Cardiac workup was unremarkable. Her symptoms resolved with fluids and transfusion. Her lab findings were suggestive of some level iron deficiency with an elevated TIBC at 344, low ferritin at 18. Iron itself was not too bad at 82. B12 and folate were within normal limits. As patient's symptoms have resolved and hemoglobin and hematocrit improved, she was not having active bleeding. It was thought she was stable for discharge to follow up with her regular [facility]. As patient wants children, she was placed on oral contraceptive pills rather than considered for hysterectomy. The patient states that the oral contraceptive pill has not been very effective in stopping her dysfunctional bleeding. Her diabetes and asthma were stable on this hospitalization. Since her lab still suggests some degree of iron deficiency, her oral iron replacement was increased to b.i.d. DISCHARGE VITALS: Temperature 97.8 degrees, pulse 89, respirations 18, blood pressure 126/86, O2 saturation 99% on room air. DISCHARGE DIET: Diabetic low salt. DISCHARGE MEDICATIONS: 1. Lovastatin 40 mg p.o. daily. 2. Albuterol inhaler as needed. 3. Oral contraceptive pill. 4. Ferrous sulfate 325 mg p.o. b.i.d. 5. Hyperlipidemia FOLLOWUP AND PLAN: 1. The patient discharged home on increased iron replacement, to follow up with PCP and [facility]. 2. Greater than 30 minutes spent arranging discharge and counseling patient.
== END 2019-04-14 12:45 | disposition home or self-care (01) | DRG 812 ==
LOC: ED 14:15 → 3N 23:13 → SUATTDRO 23:13
PROVIDERS: ATTEND Internal Medicine